=== PATIENT | male | born 1990 | race Hispanic/Latino ===

== ENCOUNTER 2018-08-18 23:08 | Emergency (ER) | payer OTHER ==
[2018-08-18] MEDS ORDERED: ORPHENADRINE CITRATE 30 MG/ML ML ONE (23:18)
[2018-08-18] MEDS ORDERED: KETOROLAC TROMETHAMINE 30MG/ML ONE (23:18)
== END 2018-08-19 00:48 | disposition home or self-care (01) ==
LOC: EDH 23:08
DX: S29.012A Strain of muscle and tendon of back wall of thorax, initial encounter (principal); Z72.0 Tobacco use; X58.XXXA Exposure to other specified factors, initial encounter; Y93.89 Activity, other specified; Y92.89 Other specified places as the place of occurrence of the external cause; Y99.8 Other external cause status
CPT/HCPCS: 72072; 96372 ×2; 99284; J1885; J2360

== ENCOUNTER 2021-10-01 16:45 | Emergency (ER) | payer BC, OTHER ==
[~2021-10-01] VITALS: Ht 170.2 cm; Wt 74.8 kg
[2021-10-01] MEDS ORDERED: FLUORESCEIN SODIUM 1 STRIP STRIP ONE (16:54)
[2021-10-01] MEDS ORDERED: GENTAMICIN SULFATE 0.3% 5ML DROPS OS SCH (17:00)
[2021-10-01 17:01] VITALS: BP 134/87
[2021-10-01] MEDS ORDERED: PREDNISONE 20 MG TABLET ONE (17:23)
[2021-10-01] MEDS ORDERED: PRED20TA3 PO (17:28)
[2021-10-01] MEDS ORDERED: PREDNISONE 20 MG TABLET PO ONE (17:30)
== END 2021-10-01 17:46 | disposition home or self-care (01) ==
LOC: EDH 16:45
DX: T78.3XXA Angioneurotic edema, initial encounter (principal); H10.9 Unspecified conjunctivitis; Z79.52 Long term (current) use of systemic steroids